=== PATIENT | female | born 1990 | race Caucasian/White ===

== ENCOUNTER 2017-11-09 05:51 | Emergency (ER) | payer MEDICAID ==
[2017-11-09 08:04] LABS: PLATELET COUNT 243 x10^3mcL (130-400); RED CELL DISTRIBUTION WIDTH 12.8 % (11.5-14.5)
[2017-11-09 08:15] LABS: CALCIUM 8.2 mg/dL (8.5-10.1); CARBON DIOXIDE 24.6 mmol/L (21-32); CHLORIDE SERUM 100 mmol/L (98-107); CREATININE SERUM 0.6 mg/dL (0.6-1.0); GFR1 > 60 mL/min; GLUCOSE SERUM 114 mg/dL (74-106); POTASSIUM SERUM 3.5 mmol/L (3.5-5.1); SODIUM SERUM 131 mmol/L (136-145)
[2017-11-09 08:27] LABS: ALKALINE PHOSPHATASE 60 U/L (46-116); ALT/SGPT 15 U/L (14-59); AST/SGOT 11 U/L (15-37); BILIRUBIN TOTAL 1.11 mg/dL (0.20-1.00); LIPASE 54 IU/L (73-393); TOTAL PROTEIN, SERUM 6.8 g/dL (6.4-8.2)
[2017-11-09 08:29] LABS: MONOCYTE 3 % (0-7); SEGMENTED NEUTROPHILS 87 % (37-75)
[2017-11-09 08:30] LABS: BAND NEUTROPHIL 9 % (0-10); BASOPHIL 0 % (0-2); PLATELET MORPHOLOGY PLATELETS NORMAL; rbc morphology (normal/abnorm) NORMAL (NORMAL)
[2017-11-09 08:31] LABS: ALBUMIN 3.3 g/dL (3.4-5.0)
[2017-11-09 09:54] VITALS: BP 102/65
== END 2017-11-09 09:54 | disposition home or self-care (01) ==
LOC: ED 05:51
PROVIDERS: Emergency Medicine
DX: N12 Tubulo-interstitial nephritis, not specified as acute or chronic (principal); Z88.1 Allergy status to other antibiotic agents
CPT/HCPCS: J0696; J1885; J2405; J3490; J7030

== ENCOUNTER 2018-01-13 17:41 | Emergency (ER) | payer MEDICAID ==
[~2018-01-13] VITALS: Ht 162.6 cm; Wt 64.9 kg
[2018-01-13 17:47] VITALS: Ht 162.6 cm; Wt 64.9 kg
[2018-01-13 18:44] LABS: UA SPECIFIC GRAVITY 1.025 (1.005-1.035); microscopic required? YES; urine erythrocyte 2+ (NEGATIVE)
[2018-01-13 19:21] LABS: BASOPHIL % 0.4 % (0-2); PLATELET COUNT 260 x10^3mcL (130-400); RED CELL DISTRIBUTION WIDTH 14.3 % (11.5-14.5)
[2018-01-13 19:43] VITALS: BP 120/69
== END 2018-01-13 19:43 | disposition home or self-care (01) ==
LOC: ED 17:41
PROVIDERS: Emergency Medicine
DX: O20.0 Threatened abortion (principal); O23.591 Infection of other part of genital tract in pregnancy, first trimester; Z3A.08 8 weeks gestation of pregnancy; F17.200 Nicotine dependence, unspecified, uncomplicated; Z88.1 Allergy status to other antibiotic agents
CPT/HCPCS: J7030

== ENCOUNTER 2018-01-17 00:49 | Emergency (ER) | payer MEDICAID ==
[~2018-01-17] VITALS: Ht 162.6 cm; Wt 65.8 kg
[2018-01-17 00:51] VITALS: Ht 162.6 cm; Wt 65.8 kg
[2018-01-17 01:33] VITALS: BP 134/84
== END 2018-01-17 01:33 | disposition home or self-care (01) ==
LOC: ED 00:49
DX: F15.90 Other stimulant use, unspecified, uncomplicated (principal); Z02.89 Encounter for other administrative examinations; Z88.1 Allergy status to other antibiotic agents

== ENCOUNTER 2018-01-31 21:15 | Emergency (ER) | payer MEDICAID ==
[~2018-01-31] VITALS: Ht 162.6 cm; Wt 70.0 kg
[2018-01-31 21:22] VITALS: Ht 162.6 cm; Wt 70.0 kg
[2018-01-31 21:48] LABS: BASOPHIL % 0.4 % (0-2); PLATELET COUNT 263 x10^3mcL (130-400); RED CELL DISTRIBUTION WIDTH 14.1 % (11.5-14.5)
[2018-01-31 21:56] LABS: microscopic required? YES; urine erythrocyte 1+ (NEGATIVE)
[2018-01-31 22:06] LABS: AMPHETAMINE QUAL UR POSITIVE (NEG <=1000)
[2018-02-01 00:40] VITALS: BP 120/65
== END 2018-02-01 00:40 | disposition home or self-care (01) ==
LOC: ED 21:15
PROVIDERS: Emergency Medicine
DX: O20.0 Threatened abortion (principal); O20.8 Other hemorrhage in early pregnancy; Z3A.10 10 weeks gestation of pregnancy; Z88.1 Allergy status to other antibiotic agents; Z88.2 Allergy status to sulfonamides
CPT/HCPCS: 36415

== ENCOUNTER 2018-02-19 17:33 | Emergency (ER) | payer MEDICAID ==
[~2018-02-19] VITALS: Ht 162.6 cm; Wt 70.8 kg
[2018-02-19 17:36] VITALS: Ht 162.6 cm; Wt 70.8 kg
[2018-02-19 18:04] LABS: BASOPHIL % 0.5 % (0-2); PLATELET COUNT 263 x10^3mcL (130-400); RED CELL DISTRIBUTION WIDTH 13.7 % (11.5-14.5)
[2018-02-19 18:15] LABS: microscopic required? NO
[2018-02-19 18:16] LABS: CALCIUM 8.4 mg/dL (8.5-10.1); CARBON DIOXIDE 28.6 mmol/L (21-32); CHLORIDE SERUM 100 mmol/L (98-107); CREATININE SERUM 0.6 mg/dL (0.6-1.0); GFR1 > 60 mL/min; GLUCOSE SERUM 94 mg/dL (74-106); POTASSIUM SERUM 3.5 mmol/L (3.5-5.1); SODIUM SERUM 135 mmol/L (136-145)
[2018-02-19 18:22] LABS: ALKALINE PHOSPHATASE 64 U/L (46-116); ALT/SGPT 19 U/L (14-59); AST/SGOT 14 U/L (15-37); LIPASE 91 IU/L (73-393); TOTAL PROTEIN, SERUM 7.2 g/dL (6.4-8.2)
[2018-02-19 18:27] LABS: ALBUMIN 3.2 g/dL (3.4-5.0)
[2018-02-19 18:43] LABS: urine erythrocyte NEGATIVE (NEGATIVE)
[2018-02-19 19:53] VITALS: BP 138/67
== END 2018-02-19 19:53 | disposition home or self-care (01) ==
LOC: ED 17:33
PROVIDERS: Emergency Medicine
DX: O20.0 Threatened abortion (principal); Z88.2 Allergy status to sulfonamides; Z88.1 Allergy status to other antibiotic agents; Z3A.12 12 weeks gestation of pregnancy
CPT/HCPCS: 36415; Q0092

== ENCOUNTER 2019-03-05 15:08 | Emergency (ER) | payer OTHER ==
[~2019-03-05] VITALS: Ht 165.1 cm; Wt 81.6 kg
[2019-03-05 15:15] VITALS: Ht 165.1 cm; Wt 81.6 kg
[2019-03-05 16:43] LABS: PLATELET COUNT 251 x10^3mcL (130-400); RED CELL DISTRIBUTION WIDTH 13.1 % (11.5-14.5)
[2019-03-05 16:48] LABS: CALCIUM 8.3 mg/dL (8.5-10.1); CARBON DIOXIDE 23.5 mmol/L (21-32); CHLORIDE SERUM 100 mmol/L (98-107); CREATININE SERUM 0.8 mg/dL (0.6-1.0); GFR1 > 60 mL/min; GLUCOSE SERUM 126 mg/dL (74-106); POTASSIUM SERUM 3.2 mmol/L (3.5-5.1); SODIUM SERUM 135 mmol/L (136-145)
[2019-03-05 16:59] LABS: BAND NEUTROPHIL 3 % (0-10); BASOPHIL 0 % (0-2); MONOCYTE 5 % (0-7); SEGMENTED NEUTROPHILS 88 % (37-75); rbc morphology (normal/abnorm) NORMAL (NORMAL)
[2019-03-05 17:05] LABS: ALBUMIN 3.2 g/dL (3.4-5.0); ALKALINE PHOSPHATASE 87 U/L (46-116); ALT/SGPT 18 U/L (14-59); AST/SGOT 14 U/L (15-37); BILIRUBIN TOTAL 0.7 mg/dL (0.20-1.00); LIPASE 93 IU/L (73-393); TOTAL PROTEIN, SERUM 7.2 g/dL (6.4-8.2)
[2019-03-05 17:31] VITALS: BP 110/69
== END 2019-03-05 18:02 | disposition home or self-care (01) ==
LOC: ED 15:08
PROVIDERS: Emergency Medicine
DX: N10 Acute pyelonephritis (principal); Z88.2 Allergy status to sulfonamides; Z88.1 Allergy status to other antibiotic agents; Z98.890 Other specified postprocedural states
CPT/HCPCS: J0696; J1885; J7030